=== PATIENT | female | born 1995 | race Caucasian/White ===

== ENCOUNTER 2017-02-09 22:44 | Emergency (ER) | payer SELFPAY ==
[2017-02-09 23:10] LABS: BASOPHIL % 0.3 % (0-2); PLATELET COUNT 207 x10^3mcL (130-400); RED CELL DISTRIBUTION WIDTH 13.8 % (11.5-14.5)
[2017-02-09 23:22] LABS: CALCIUM 8.8 mg/dL (8.5-10.1); CARBON DIOXIDE 27.9 mmol/L (21-32); CHLORIDE SERUM 102 mmol/L (98-107); CREATININE SERUM 0.8 mg/dL (0.6-1.0); GFR1 > 60 mL/min; GLUCOSE SERUM 114 mg/dL (74-106); POTASSIUM SERUM 3.1 mmol/L (3.5-5.1); SODIUM SERUM 141 mmol/L (136-145)
[2017-02-09 23:24] LABS: ALKALINE PHOSPHATASE 61 U/L (46-116); ALT/SGPT 25 U/L (14-59); AMYLASE 64 U/L (25-115); AST/SGOT 18 U/L (15-37); BILIRUBIN TOTAL 0.4 mg/dL (0.20-1.00); LIPASE 213 IU/L (73-393); TOTAL PROTEIN, SERUM 7.9 g/dL (6.4-8.2)
[2017-02-10 00:37] VITALS: BP 100/60
== END 2017-02-10 00:37 | disposition other institution (70) ==
LOC: ED 22:44
PROVIDERS: Emergency Medicine
DX: F10.129 Alcohol abuse with intoxication, unspecified (principal)
CPT/HCPCS: G0480; J7030

== ENCOUNTER 2017-02-09 22:44 | Emergency (ER) | payer OTHER | END 2017-02-10 00:37 | disposition other institution (70) | LOC: ED 22:44 | DX: Z02.89 Encounter for other administrative examinations (principal) ==